=== PATIENT | male | born 1955 | race African-American/Black ===

== ENCOUNTER 2017-06-13 19:45 | Emergency (ER) | payer BC ==
[2017-06-13] MEDS ORDERED: HYDROcodone/Acetaminophen 10/325 mg Tablet ONE (20:10)
[2017-06-13] MEDS ORDERED: Ibuprofen 800 MG TAB ONE (20:10)
--- NOTE | 2017-06-13 20:48 | RAD ---
THREE VIEWS RIGHT ANKLE 06/13/17 INDICATION: Right ankle injury after a fall from roof. FINDINGS: There is a comminuted, predominantly spiral oriented fracture involving the lateral malleolus. The fr acture displaced posteriorly approximately one half shaft width. There is lateral subluxation of the talar dome in relationship to the tibial plafond suspicious for m edial ankle ligamentous injury. There is a 1 cm osteochondral defect involving the posterior medial t alar dome. Enthesopathic changes seen off the calcaneus. IMPRESSION: 1. Fracture subluxation of the left ankle. Comminuted fracture seen involving the lateral malleo margoth with posterior displacement of one half shaft width. 2. Medial widening of the ankle mortise suspicious for medial ankle ligamentous injury. 3. Osteochondral defect of the posterior medial talar dome. POS: NATTY
[2017-06-13] MEDS ORDERED: Bacitracin Zinc 1 Packet ONE (20:54)
== END 2017-06-13 21:00 | disposition home or self-care (01) ==
LOC: ERS 19:45
DX: S82.62XA Displaced fracture of lateral malleolus of left fibula, initial encounter for closed fracture (principal); F17.210 Nicotine dependence, cigarettes, uncomplicated; W17.89XA Other fall from one level to another, initial encounter
CPT/HCPCS: 29515

== ENCOUNTER 2025-03-21 04:48 | Inpatient (IN) | payer BC, MEDICARE ==
[2025-03-21 06:07] LABS: #Basophils 0.05 10x3/uL (0.0-0.2); #Eosinophils 0.13 10x3/uL (0.0-0.7); #Monocytes 0.75 10x3/uL (0.11-0.59); #Neutrophils 5.99 10x3/uL (1.40-6.50); %Basophils 0.6 % (0.0-1.0); %Eosinophils 1.5 % (0.0-10.0); %Lymphocytes 17.8 % (21.0-51.0); %Monocytes 8.9 % (0.0-10.0); %Neutrophils 70.7 % (42.0-75.0); Hematocrit 41.5 % (42.0-52.0); Hemoglobin 12.9 g/dL (14.0-18.0); Mean Corpuscular Hemoglobin 23.6 pg (27.0-31.0); Mean Corpuscular Volume 76.0 fL (78.0-98.0); Platelet Count 183 10x3/uL (130-400); Red Blood Cell (RBC) Count 5.46 mill/uL (4.70-6.10); White Blood Cell (WBC) Count 8.47 10x3/uL (4.8-10.8)
[2025-03-21] MEDS ORDERED: Ondansetron PF 4 MG/2 ML Vial ONE (06:17)
[2025-03-21] MEDS ORDERED: Mag-Al 1200 mg/1200 mg/30 ML UDCUP ONE (06:17)
[2025-03-21] MEDS ORDERED: Lidocaine Viscous Sol 2% 15 ml UD Cup ONE (06:18)
[2025-03-21 06:26] LABS: ALT (SGPT) 9 U/L (Less than 45); AST (SGOT) 27 U/L (11-34); Albumin 4.3 g/dL (3.1-4.5); Alkaline Phosphatase 84 U/L (40-110); Anion Gap 14 mmol/L (10-20); BUN (Urea Nitrogen) 15 mg/dL (8.4-25.7); Bilirubin, Total 0.1 mg/dL (0.3-1.2); Calc. Creatinine Clearance 0 mL/min (70-130); Calcium 9.8 mg/dL (7.8-10.44); Carbon Dioxide 28 mmol/L (23-31); Chloride 100 mmol/L (98-107); Globulin 4.1 g/dL (2.4-3.5); Glucose 150 mg/dL (80-115); Potassium 4.5 mmol/L (3.5-5.1); Sodium 137 mmol/L (136-145)
[2025-03-21] MEDS ORDERED: Aspirin Chewable 81 MG TAB ONE (07:34)
[2025-03-21] MEDS ORDERED: Nitroglycerin 0.4 MG TAB (25 Tab Bottle) SL PRN ×2 (08:57→14:12)
[2025-03-21] MEDS ORDERED: Senokot S 8.6-50 MG TAB PO PRN (08:57)
[2025-03-21] MEDS ORDERED: Melatonin 3 MG TAB PO PRN (08:57)
[2025-03-21] MEDS ORDERED: Ondansetron PF 4 MG/2 ML Vial IVP PRN (08:57)
[2025-03-21] MEDS ORDERED: Acetaminophen 325 MG TAB PO PRN (08:57)
[2025-03-21] MEDS ORDERED: Enoxaparin 100 MG (1 mL) SYRINGE SC SCH (11:30)
[2025-03-21] MEDS: Famotidine 20 MG TAB PO SCH ×2 (11:42→20:19)
[2025-03-21] MEDS: Nitroglycerin 2% Ointment 1 INCH/1 GM Packet TOP SCH (11:42)
[2025-03-21] MEDS ORDERED: Lidocaine 1% (PF) 30 ML VIAL ONE (12:54)
[2025-03-21] MEDS ORDERED: Heparin 10,000 UNITS/ 10 ML VIAL ONE (12:54)
[2025-03-21] MEDS ORDERED: Nitroglycerin 50 MG/250 ML BOT 250 ML ONE (12:54)
[2025-03-21] MEDS ORDERED: PHENYLEPHRINE-NS 100 MCG/ML 10 ML SYRINGE ONE (12:54)
[2025-03-21] MEDS: Heparin 10,000 UNITS/ 10 ML VIAL SLOW IVP SCH (12:55)
[2025-03-21] MEDS: Aspirin Chewable 81 MG TAB PO SCH (13:02)
[2025-03-21] MEDS ORDERED: Adenosine 6 mg (2 mL) VIAL ONE (13:10)
[2025-03-21] MEDS ORDERED: Iopamidol-370 76% 500 ML MDV (1 ML CHARGE) ONE (14:42)
[2025-03-21] MEDS ORDERED: Iopamidol 370 76% 100 ML VIAL ONE (15:08)
[2025-03-21] MEDS ORDERED: Communication Order-Pharmacy FS SCH (16:01)
[2025-03-22 04:40] LABS: #Basophils 0.03 10x3/uL (0.0-0.2); #Eosinophils 0.19 10x3/uL (0.0-0.7); #Monocytes 0.91 10x3/uL (0.11-0.59); #Neutrophils 5.04 10x3/uL (1.40-6.50); %Basophils 0.3 % (0.0-1.0); %Eosinophils 2.1 % (0.0-10.0); %Lymphocytes 30.1 % (21.0-51.0); %Monocytes 10.3 % (0.0-10.0); %Neutrophils 57.0 % (42.0-75.0); Hematocrit 37.3 % (42.0-52.0); Hemoglobin 11.8 g/dL (14.0-18.0); Mean Corpuscular Hemoglobin 23.9 pg (27.0-31.0); Mean Corpuscular Volume 75.5 fL (78.0-98.0); Platelet Count 148 10x3/uL (130-400); Red Blood Cell (RBC) Count 4.94 mill/uL (4.70-6.10); White Blood Cell (WBC) Count 8.86 10x3/uL (4.8-10.8)
[2025-03-22 05:02] LABS: Anion Gap 14 mmol/L (10-20); BUN (Urea Nitrogen) 15 mg/dL (8.4-25.7); Calc. Creatinine Clearance 107 mL/min (70-130); Calcium 8.8 mg/dL (7.8-10.44); Carbon Dioxide 24 mmol/L (23-31); Cardiac Risk 3.9 (Less than 4.5); Chloride 103 mmol/L (98-107); Cholesterol 147 mg/dl (< 200 Desired); Glucose 128 mg/dL (80-115); HDL Cholesterol 38 mg/dL (>60 Neg Risk); LDL Cholesterol, Calculated 75 mg/dL; Potassium 4.2 mmol/L (3.5-5.1); Sodium 137 mmol/L (136-145); Triglycerides 169 mg/dL (Less than 150)
[2025-03-22] MEDS ORDERED: Lidocaine 1% (PF) 30 ML VIAL ONE (06:44)
[2025-03-22] MEDS ORDERED: PHENYLEPHRINE-NS 100 MCG/ML 10 ML SYRINGE ONE ×2 (06:44→09:46)
[2025-03-22] MEDS ORDERED: PROPOFOL 20 ML ONE (07:07)
[2025-03-22] MEDS ORDERED: CEFAZOLIN 2 GM VIAL ONE (07:20)
[2025-03-22] MEDS ORDERED: Heparin 10,000 UNITS/1 ML VIAL 30,000 UNITS in Sodium Chloride 0.9% 1,000 ML FS SCH (07:30)
[2025-03-22] MEDS ORDERED: Heparin 30,000 units/30 ml VIAL ONE (07:50)
[2025-03-22] MEDS ORDERED: Thrombin 5000 UNITS/5 ML VIAL ONE (07:50)
[2025-03-22] MEDS ORDERED: Heparin 5,000 UNITS/ML VIAL ONE (07:50)
[2025-03-22] MEDS ORDERED: Calcium Chloride 1 GM/10 ML Abboject SYRINGE ONE (07:50)
[2025-03-22] MEDS ORDERED: Aspirin Chewable 81 MG TAB PO SCH (09:00)
[2025-03-22] MEDS ORDERED: Etomidate 40 MG (20 mL) VIAL ONE (09:46)
[2025-03-22] MEDS ORDERED: Nitroglycerin 2% Ointment 1 INCH/1 GM Packet ONE (09:47)
[2025-03-22] MEDS: niCARdipine 25 MG in Sodium Chloride 0.9% 250 ML 250 ML IVPB PRN (11:10)
[2025-03-22 11:17] LABS: Actual Bicarbonate (HCO3a) 22.7 mEq/L (22-28); Base Excess (BEa) -4.3 mEq/L (-2.0 to +3.0); CO2 Tension 50.2 mmHg (35.0-45.0); Calcium, Ionized (arterial) 1.26 mmol/L (1.12-1.30); Hematocrit-ABG 34 % (42.0-52.0); Hemoglobin (Hb) 11.5 g/dL (14.0-18.0); O2 Tension (PaO2), arterial 239.8 mmHg (> 80.0); Potassium - ABG Lab 4.81 mmol/L (3.70-5.30); pH, Arterial 7.274 (7.35-7.45)
[2025-03-22 11:19] LABS: Puncture Site Arterial Line
[2025-03-22] MEDS ORDERED: Ondansetron PF 4 MG/2 ML Vial IVP PRN (11:19)
[2025-03-22] MEDS ORDERED: Albumin 5% 12.5 GM (250 mL) BOT IVPB PRN ×2 (11:19)
[2025-03-22] MEDS ORDERED: NOREPINEPHRINE 8 MG/250 ML-D5W 250 ML IVPB PRN (11:19)
[2025-03-22] MEDS ORDERED: Bisacodyl 10 MG SUPP PR PRN (11:19)
[2025-03-22] MEDS ORDERED: hydrALAZINE 20 MG/ML VIAL SLOW IVP PRN (11:19)
[2025-03-22] MEDS ORDERED: Mag-Al 1200 mg/1200 mg/30 ML UDCUP PO PRN (11:19)
[2025-03-22] MEDS ORDERED: Potassium Chloride 20 MEQ (100 mL) BAG IVPB PRN (11:19)
[2025-03-22 11:20] LABS: ALV-art Gradient 125.250 mmHg (0-20)
[2025-03-22 11:39] LABS: #Basophils 0.03 10x3/uL (0.0-0.2); #Eosinophils 0.18 10x3/uL (0.0-0.7); #Monocytes 1.27 10x3/uL (0.11-0.59); #Neutrophils 9.77 10x3/uL (1.40-6.50); %Basophils 0.2 % (0.0-1.0); %Eosinophils 1.3 % (0.0-10.0); %Lymphocytes 18.7 % (21.0-51.0); %Monocytes 9.1 % (0.0-10.0); %Neutrophils 70.2 % (42.0-75.0); Hematocrit 33.7 % (42.0-52.0); Hemoglobin 10.2 g/dL (14.0-18.0); Mean Corpuscular Hemoglobin 23.6 pg (27.0-31.0); Mean Corpuscular Volume 77.8 fL (78.0-98.0); Platelet Count 127 10x3/uL (130-400); Red Blood Cell (RBC) Count 4.33 mill/uL (4.70-6.10); White Blood Cell (WBC) Count 13.93 10x3/uL (4.8-10.8)
[2025-03-22 11:51] LABS: Anion Gap 11 mmol/L (10-20); BUN (Urea Nitrogen) 12 mg/dL (8.4-25.7); Calc. Creatinine Clearance 131 mL/min (70-130); Calcium 8.5 mg/dL (7.8-10.44); Carbon Dioxide 24 mmol/L (23-31); Chloride 107 mmol/L (98-107); Glucose 150 mg/dL (80-115); Potassium 4.7 mmol/L (3.5-5.1); Sodium 137 mmol/L (136-145)
[2025-03-22 11:52] LABS: INR-International Normal Ratio 1.3; Prothrombin Time 16.4 sec (12.0-14.7)
[2025-03-22 11:53] LABS: PTT 30.2 sec (22.9-36.1)
[2025-03-22] MEDS ORDERED: Glucagon 1 MG/ML KIT SC PRN (12:15)
[2025-03-22] MEDS ORDERED: Dextrose 50% Abboject 50 ML SYRINGE SLOW IVP PRN (12:15)
[2025-03-22] MEDS: Acetaminophen 325 MG TAB PO SCH (12:26)
[2025-03-22] MEDS: Ketorolac Tromethamine 30 MG (1 mL) VIAL IVP SCH (12:30)
[2025-03-22] MEDS: Magnesium 2 GM/50 ML(in water) 2 GM in Premix 1 BAG IVPB SCH (12:30)
[2025-03-22 13:51] LABS: Actual Bicarbonate (HCO3a) 22.9 mEq/L (22-28); Base Excess (BEa) -3.0 mEq/L (-2.0 to +3.0); CO2 Tension 44.2 mmHg (35.0-45.0); Calcium, Ionized (arterial) 1.17 mmol/L (1.12-1.30); Hematocrit-ABG 37 % (42.0-52.0); Hemoglobin (Hb) 12.7 g/dL (14.0-18.0); O2 Tension (PaO2), arterial 97.4 mmHg (> 80.0); Potassium - ABG Lab 4.48 mmol/L (3.70-5.30); pH, Arterial 7.333 (7.35-7.45)
[2025-03-22 13:53] LABS: ALV-art Gradient 132.550 mmHg (0-20); Puncture Site Arterial Line
[2025-03-22] MEDS: Post-Op Insulin Drip Protocol IVPB ONE (14:48)
[2025-03-22] MEDS: Aspirin Chewable 81 MG TAB PO SCH (16:06)
[2025-03-22] MEDS: INSULIN REGULAR IN 0.9 % NACL 100 UNITS in Premix 1 BAG IVPB SCH (16:20)
[2025-03-22 18:46] LABS: Hematocrit 37.4 % (42.0-52.0); Hemoglobin 11.5 g/dL (14.0-18.0)
[2025-03-22 19:01] LABS: Potassium 4.5 mmol/L (3.5-5.1)
[2025-03-22] MEDS: Guaifenesin DM 100-10/5 ML UDCUP PO PRN (20:00)
[2025-03-22] MEDS: Famotidine/PF 20 mg/2ml Vial SLOW IVP SCH (20:00)
[2025-03-23 04:52] LABS: Anion Gap 9 mmol/L (10-20); BUN (Urea Nitrogen) 9 mg/dL (8.4-25.7); Calc. Creatinine Clearance 147 mL/min (70-130); Calcium 8.1 mg/dL (7.8-10.44); Carbon Dioxide 22 mmol/L (23-31); Chloride 106 mmol/L (98-107); Glucose 115 mg/dL (80-115); Potassium 4.3 mmol/L (3.5-5.1); Sodium 133 mmol/L (136-145)
[2025-03-23 05:07] LABS: #Basophils Less than 0.03 10x3/uL (0.0-0.2); #Eosinophils Less than 0.03 10x3/uL (0.0-0.7); #Monocytes 1.46 10x3/uL (0.11-0.59); #Neutrophils 8.19 10x3/uL (1.40-6.50); %Basophils 0.2 % (0.0-1.0); %Eosinophils 0.2 % (0.0-10.0); %Lymphocytes 15.7 % (21.0-51.0); %Monocytes 12.6 % (0.0-10.0); %Neutrophils 70.9 % (42.0-75.0); Hematocrit 32.5 % (42.0-52.0); Hemoglobin 10.2 g/dL (14.0-18.0); Mean Corpuscular Hemoglobin 23.9 pg (27.0-31.0); Mean Corpuscular Volume 76.3 fL (78.0-98.0); Platelet Count 129 10x3/uL (130-400); Red Blood Cell (RBC) Count 4.26 mill/uL (4.70-6.10); White Blood Cell (WBC) Count 11.56 10x3/uL (4.8-10.8)
[2025-03-23] MEDS: Aspirin 325 MG TAB PO SCH (08:28)
[2025-03-23] MEDS: Magnesium 2 GM/50 ML(in water) 2 GM in Premix 1 BAG IVPB SCH (08:29)
[2025-03-23] MEDS ORDERED: Insulin Glargine 30 UNITS/0.3 ML VIAL SC PRN (12:05)
[2025-03-23] MEDS: HYDROcodone/Acetaminophen 5/325 mg Tablet PO PRN (14:33)
[2025-03-23] MEDS: Heparin 5,000 UNITS/ML VIAL SC SCH (14:34)
[2025-03-24 05:50] LABS: #Basophils 0.03 10x3/uL (0.0-0.2); #Eosinophils 0.11 10x3/uL (0.0-0.7); #Monocytes 1.65 10x3/uL (0.11-0.59); #Neutrophils 7.71 10x3/uL (1.40-6.50); %Basophils 0.3 % (0.0-1.0); %Eosinophils 1.0 % (0.0-10.0); %Lymphocytes 16.0 % (21.0-51.0); %Monocytes 14.5 % (0.0-10.0); %Neutrophils 67.8 % (42.0-75.0); Hematocrit 31.4 % (42.0-52.0); Hemoglobin 9.7 g/dL (14.0-18.0); Mean Corpuscular Hemoglobin 23.7 pg (27.0-31.0); Mean Corpuscular Volume 76.6 fL (78.0-98.0); Platelet Count 121 10x3/uL (130-400); Red Blood Cell (RBC) Count 4.10 mill/uL (4.70-6.10); White Blood Cell (WBC) Count 11.37 10x3/uL (4.8-10.8)
[2025-03-24 05:51] LABS: Anion Gap 9 mmol/L (10-20); BUN (Urea Nitrogen) 10 mg/dL (8.4-25.7); Calc. Creatinine Clearance 132 mL/min (70-130); Calcium 8.2 mg/dL (7.8-10.44); Carbon Dioxide 25 mmol/L (23-31); Chloride 107 mmol/L (98-107); Glucose 129 mg/dL (80-115); Potassium 4.2 mmol/L (3.5-5.1); Sodium 137 mmol/L (136-145)
[2025-03-24] MEDS: Furosemide 20 MG (2 mL) VIAL SLOW IVP SCH ×2 (08:23→14:03)
[2025-03-24] MEDS: metFORMIN XR 500 MG ER.TAB ONE (08:24)
[2025-03-24] MEDS: Lactulose 20 GM (30 mL) UDCUP PO SCH (08:42)
[2025-03-24] MEDS: HYDROcodone/Acetaminophen 5/325 mg Tablet PO PRN (16:39)
[2025-03-25 04:13] LABS: #Basophils 0.04 10x3/uL (0.0-0.2); #Eosinophils 0.23 10x3/uL (0.0-0.7); #Monocytes 1.43 10x3/uL (0.11-0.59); #Neutrophils 6.64 10x3/uL (1.40-6.50); %Basophils 0.4 % (0.0-1.0); %Eosinophils 2.0 % (0.0-10.0); %Lymphocytes 25.8 % (21.0-51.0); %Monocytes 12.7 % (0.0-10.0); %Neutrophils 58.7 % (42.0-75.0); Hematocrit 30.4 % (42.0-52.0); Hemoglobin 9.4 g/dL (14.0-18.0); Mean Corpuscular Hemoglobin 23.6 pg (27.0-31.0); Mean Corpuscular Volume 76.4 fL (78.0-98.0); Platelet Count 135 10x3/uL (130-400); Red Blood Cell (RBC) Count 3.98 mill/uL (4.70-6.10); White Blood Cell (WBC) Count 11.30 10x3/uL (4.8-10.8)
[2025-03-25 04:25] LABS: Anion Gap 12 mmol/L (10-20); BUN (Urea Nitrogen) 20 mg/dL (8.4-25.7); Calc. Creatinine Clearance 114 mL/min (70-130); Calcium 8.4 mg/dL (7.8-10.44); Carbon Dioxide 23 mmol/L (23-31); Chloride 106 mmol/L (98-107); Glucose 124 mg/dL (80-115); Potassium 4.1 mmol/L (3.5-5.1); Sodium 137 mmol/L (136-145)
[2025-03-25] MEDS: metFORMIN 500 MG TAB PO SCH (09:30)
[2025-03-25] MEDS: Digoxin 0.5 MG/2 ML AMP SLOW IVP SCH (09:31)
[2025-03-25] MEDS: dilTIAZem 25 MG/5 ML VIAL SLOW IVP SCH (09:31)
[2025-03-25] MEDS: Diltiazem HCl/D5W 125 MG in Premix 1 BAG IVPB SCH ×3 (09:32→22:07)
[2025-03-26 03:51] LABS: #Basophils Less than 0.03 10x3/uL (0.0-0.2); #Eosinophils 0.27 10x3/uL (0.0-0.7); #Monocytes 1.10 10x3/uL (0.11-0.59); #Neutrophils 6.20 10x3/uL (1.40-6.50); %Basophils 0.2 % (0.0-1.0); %Eosinophils 2.6 % (0.0-10.0); %Lymphocytes 26.0 % (21.0-51.0); %Monocytes 10.7 % (0.0-10.0); %Neutrophils 60.1 % (42.0-75.0); Hematocrit 30.7 % (42.0-52.0); Hemoglobin 9.4 g/dL (14.0-18.0); Mean Corpuscular Hemoglobin 23.4 pg (27.0-31.0); Mean Corpuscular Volume 76.4 fL (78.0-98.0); Platelet Count 161 10x3/uL (130-400); Red Blood Cell (RBC) Count 4.02 mill/uL (4.70-6.10); White Blood Cell (WBC) Count 10.31 10x3/uL (4.8-10.8)
[2025-03-26 04:07] LABS: Anion Gap 11 mmol/L (10-20); BUN (Urea Nitrogen) 13 mg/dL (8.4-25.7); Calc. Creatinine Clearance 120 mL/min (70-130); Calcium 8.4 mg/dL (7.8-10.44); Carbon Dioxide 25 mmol/L (23-31); Chloride 104 mmol/L (98-107); Glucose 125 mg/dL (80-115); Potassium 4.5 mmol/L (3.5-5.1); Sodium 135 mmol/L (136-145)
[2025-03-26 04:09] LABS: Digoxin Less than 0.19 ng/mL (0.8-2.0)
[2025-03-26] MEDS: Lisinopril 10 MG TAB PO SCH (12:16)
[2025-03-27 04:21] LABS: #Basophils 0.03 10x3/uL (0.0-0.2); #Eosinophils 0.33 10x3/uL (0.0-0.7); #Monocytes 1.06 10x3/uL (0.11-0.59); #Neutrophils 6.08 10x3/uL (1.40-6.50); %Basophils 0.3 % (0.0-1.0); %Eosinophils 3.2 % (0.0-10.0); %Lymphocytes 26.4 % (21.0-51.0); %Monocytes 10.3 % (0.0-10.0); %Neutrophils 59.4 % (42.0-75.0); Hematocrit 33.0 % (42.0-52.0); Hemoglobin 10.1 g/dL (14.0-18.0); Mean Corpuscular Hemoglobin 23.5 pg (27.0-31.0); Mean Corpuscular Volume 76.9 fL (78.0-98.0); Platelet Count 211 10x3/uL (130-400); Red Blood Cell (RBC) Count 4.29 mill/uL (4.70-6.10); White Blood Cell (WBC) Count 10.25 10x3/uL (4.8-10.8)
[2025-03-27 04:39] LABS: Anion Gap 13 mmol/L (10-20); BUN (Urea Nitrogen) 11 mg/dL (8.4-25.7); Calc. Creatinine Clearance 110 mL/min (70-130); Calcium 9.4 mg/dL (7.8-10.44); Carbon Dioxide 26 mmol/L (23-31); Chloride 102 mmol/L (98-107); Glucose 114 mg/dL (80-115); Potassium 4.5 mmol/L (3.5-5.1); Sodium 136 mmol/L (136-145)
[2025-03-27 07:07] VITALS: BMI 27.6
[2025-03-27] MEDS ORDERED: Amiodarone 200 MG TAB PO SCH (09:00)
[2025-03-27] MEDS: Furosemide 20 MG TAB PO SCH (09:30)
[2025-03-27] MEDS: Amiodarone 200 MG TAB PO SCH (09:32)
[2025-03-27] MEDS: Lisinopril 10 MG TAB PO SCH (09:32)
[2025-03-27 11:10] VITALS: BP 114/70; TEMP 98.6
== END 2025-03-27 16:52 | disposition home or self-care (01) | DRG 234 ==
LOC: ERS 04:48 → OBS 07:44 → OBSVTOIN 08:57 → CCU 03-22 06:36 → PCU 03-24 21:36
PROVIDERS: ADMIT Internal Medicine; ATTEND Family Medicine
PROC: 4A023N7 Measurement of Cardiac Sampling and Pressure, Left Heart, Percutaneous Approach (ICD-10-PCS; principal; 2025-03-21)
PROC: B2111ZZ Fluoroscopy of Multiple Coronary Arteries using Low Osmolar Contrast (ICD-10-PCS; 2025-03-21)
PROC: B2151ZZ Fluoroscopy of Left Heart using Low Osmolar Contrast (ICD-10-PCS; 2025-03-21)
PROC: 021009W Bypass Coronary Artery, One Artery from Aorta with Autologous Venous Tissue, Open Approach (ICD-10-PCS; 2025-03-22)
PROC: 02100Z9 Bypass Coronary Artery, One Artery from Left Internal Mammary, Open Approach (ICD-10-PCS; 2025-03-22)
PROC: 06BP4ZZ Excision of Right Saphenous Vein, Percutaneous Endoscopic Approach (ICD-10-PCS; 2025-03-22)
PROC: 0PQ00ZZ Repair Sternum, Open Approach (ICD-10-PCS; 2025-03-22)
PROC: 02L73CK Occlusion of Left Atrial Appendage with Extraluminal Device, Percutaneous Approach (ICD-10-PCS; 2025-03-22)
PROC: 5A1221Z Performance of Cardiac Output, Continuous (ICD-10-PCS; 2025-03-22)
PROC: 05H533Z Insertion of Infusion Device into Right Subclavian Vein, Percutaneous Approach (ICD-10-PCS; 2025-03-22)
PROC: 30233J1 Transfusion of Nonautologous Serum Albumin into Peripheral Vein, Percutaneous Approach (ICD-10-PCS; 2025-03-22)
PROC: 3E03329 Introduction of Other Anti-infective into Peripheral Vein, Percutaneous Approach (ICD-10-PCS; 2025-03-22)
PROC: 3E033XZ Introduction of Vasopressor into Peripheral Vein, Percutaneous Approach (ICD-10-PCS; 2025-03-22)
PROC: 4A03351 Measurement of Arterial Flow, Peripheral, Percutaneous Approach (ICD-10-PCS; 2025-03-22)
DX: I21.4 Non-ST elevation (NSTEMI) myocardial infarction (principal); I97.190 Other postprocedural cardiac functional disturbances following cardiac surgery; I50.42 Chronic combined systolic (congestive) and diastolic (congestive) heart failure; R07.9 Chest pain, unspecified; I25.110 Atherosclerotic heart disease of native coronary artery with unstable angina pectoris; I48.91 Unspecified atrial fibrillation; K21.9 Gastro-esophageal reflux disease without esophagitis; E78.5 Hyperlipidemia, unspecified; I25.5 Ischemic cardiomyopathy; E11.9 Type 2 diabetes mellitus without complications; Z98.890 Other specified postprocedural states; F17.210 Nicotine dependence, cigarettes, uncomplicated; Z98.1 Arthrodesis status; Z88.5 Allergy status to narcotic agent; I11.0 Hypertensive heart disease with heart failure; Z79.899 Other long term (current) drug therapy; Z79.84 Long term (current) use of oral hypoglycemic drugs
CPT/HCPCS: 36415; 36416; 71045; 71275; 80048; 80053; 80061; 80162; 82805; 83690; 84484; 85025; 85347; 85610; 85730; 86850; 86900; 86901; 93005; 93010; 93306; 93458; 93798; 94002; 94150; 96374; 97139; A4311; A4648; C1751; C1769; C1889; C1894; G0378; J0153; J0169; J0461; J0665; J1100; J1160; J1642; J1644; J1815; J1885; J1940; J2250; J2270; J2405; J2440; J2704; J2720; J2919; J3010; J3373; J3475; J7030; J7050; J7620; P9045; Q9967; S0017